=== PATIENT | female | born 1975 | race Caucasian/White ===

== ENCOUNTER 2019-12-27 09:16 | Observation (INO) | payer BC, SELFPAY ==
[2019-12-27] VITALS (8 sets, daily range): BP systolic 91–121; BP diastolic 60–94; PULSE 67–125; RESP 16–18; TEMP 36.5–36.7; O2SAT 94–99; BMI 26.8; BMI 26.3
--- NOTE | 2019-12-27 09:19 | ED.DCSUM_ITS ---
History of Present Illness Chief Complaint: Palpitations Narrative: Patient presenting with palpitations. She states he has had these multiple times since he was a child. She states that she usually can do vagal maneuvers and get her heart rate back to normal. Today she states that she was unable to do this. She states that she knows to bear down and going to the position. Patient also states that her family numbers have recently been diagnosed with Gitelman syndrome. She suspicious she may have this. She states that usually if she keeps up with her magnesium she does not have a problem. Patient states that she learned this from a friend who had similar fast heart rates. Patient states she was up feeding more than usual last night and thought she may need to replace her electrolytes. Patient states that she really saw a doctor as a kid and her mother would just teach her how to manage symptoms. She is not having any chest pain. No nausea or vomiting. States that prior to this she was feeling at her baseline. Past Medical History - Allergies and Home Meds Allergies/Adverse Reactions: Allergies Penicillins Allergy (Verified 12/27/19 09:22) Hives Prior records reviewed: Yes Lives: Spouse/ Significant Other Smoking Status: Never smoker Alcohol: None Drugs: None Review of Systems General: Denies: Chills, Fever, Sweats Eyes: Denies: Visual changes - bilaterally, Diplopia ENT: Denies: Rhinorrhea, Sore throat Cardiovascular: Reports: Palpitations, Heart racing Respiratory: Denies: Dyspnea, Cough, Dyspnea on exertion Gastrointestinal: Denies: Abdominal pain, Nausea, Vomiting, Diarrhea, Melena, Hematochezia Genitourinary: Denies: Dysuria, Hematuria, Frequency Musculoskeletal: Denies: Back pain, Extremity Pain Skin: Denies: Rash, Wounds Neurological: Denies: Headache, Weakness, Numbness Physical Exam General: Well nourished, Well developed, No Acute Distress Head: Normocephalic, Atraumatic Eyes: Perrl, EOMI ENT: Moist mucous membranes Cardiovascular: No murmurs, Tachycardia Respiratory: No distress, CTA bilaterally Abdomen: Soft Back: Normal Inspection Extremities: Nontender, No edema Skin: Normal color, No rash Neurological: Alert, Oriented x3 Psychological: Normal affect Diagnostic/Tx/Re-eval Clinical Impression(s) from Imaging Studies Chest X-Ray 12/27/19 09:29 IMPRESSION: Normal x-ray examination of the chest. Electronically Signed: Magdiel Stafford, at 10:25 EDT , Service support , Laboratory Data 12/27/19 12/27/19 09:00 09:00 WBC 7.3 RBC 4.72 Hgb 14.2 Hct 41.2 MCV 87.3 MCH 30.1 MCHC 34.5 RDW Std Deviation 38.5 RDW Coeff of Jeremy 12.0 Plt Count 245 MPV 10.5 Immature Gran % (Auto) 0.400 Neut % (Auto) 60.7 Lymph % (Auto) 26.2 [place] % (Auto) 8.3 Eos % (Auto) 3.7 Baso % (Auto) 0.7 Absolute Neuts (auto) 4.4 Absolute Lymphs (auto) 1.92 Nucleated RBC % 0 Sodium 139 Potassium 2.5 L* Chloride 105 Carbon Dioxide 25.0 Anion Gap 9 BUN 19 H Creatinine 0.72 Estim Creat Clear Calc 79.68 Est GFR (MDRD) Af Amer 114 Est GFR (MDRD) Non-Af 94 BUN/Creatinine Ratio 26.5 H Glucose 164 H Calcium 8.2 L Magnesium 1.3 L Troponin I < 0.015 TSH 2.52 - Rhythm Strip Rhythm Strip: - SVT 134 bpm Rate: 134 - SVT - EKG Initial EKG Interpretation: - - SVT 134 bpm Prior: No Prior Follow-up EKG Interpretation: Sinus Tachycardia, - - U waves present - Medical Decision Making 44-year-old female presenting with palpitations. She states this is been occurring nearly her entire life. She states that generally taking magnesium helps control the frequency of her palpitations. She also does vagal maneuvers at home when she does have palpitations like this. She states that she typically can get herself into a normal rhythm again. Patient also believes she has undiagnosed Gitelman syndrome given that her brothers similar symptoms. 1 of her brothers tested and is positive for Gitelman syndrome. Patient does not know if her parents had similar symptoms. Patient also presented in SVT. Patient's heart rate was in the 130s. She was given adenosine 6 mg followed subsequently by 12 mg which did put her back into a normal sinus rhythm. EKG performed adenosine shows a sinus tachycardia 105 bpm with Q waves. Chest x-ray is normal. Troponin is negative. CBC is within normal limits. Magnesium is low at 1.4. Potassium is also low at 2.5. Calcium is also low at 8.2. Creatinine appears normal. BUN/creatinine ratio is slightly elevated. Patient was given a liter of IV fluids. Was also given IV magnesium for milligrams as well as 40 mEq of p.o. potassium. Given patient's SVT, electrolyte abnormalities I feel she needs to be admitted to the hospital. Hospitalist did agree to accept admission. He will give her IV Assam once her magnesium is done. He will also replete her calcium as needed. Impression: 1. SVT 2. Hypokalemia 3. Hypomagnesemia ED Disposition - Plan for ED Patient: Disposition: Acute Care Hospital [facility]
--- NOTE | 2019-12-27 09:21 | EKG12_ITS ---
Test Reason : PALPITATIONS Blood Pressure : / mmHG Vent. Rate : 134 BPM Atrial Rate : 133 BPM P-R Int : 000 ms QRS Dur : 070 ms QT Int : 262 ms P-R-T Axes : 000 023 -35 degrees QTc Int : 391 ms Supraventricular tachycardia Nonspecific ST and T wave abnormality Abnormal ECG Confirmed by MIHAI HERNANDEZ ([id number]), greeting card editor SLIME SANTANA ([id number]) on 01/01/2020 4:07:38 PM Referred By: NELY Confirmed By:MIHAI HERNANDEZ
--- NOTE | 2019-12-27 09:29 | RAD_ITS ---
STUDY: X-RAY CHEST REASON FOR EXAM: Female, 44 years old. Pt. States she has had trouble with rapid heart rate all of her life but it normally settles down. Today she has had rapid heart rate without being able to get it to settle down. TECHNIQUE: Single AP portable view of the chest. COMPARISON: None. FINDINGS: EKG electrodes are seen. The lungs are clear and expanded. There is no demonstrated pleural abnormality. Normal size heart. Normal mediastinum and caridad. Normal visualized pulmonary arteries. Normal visualized aortic arch and descending thoracic aorta. Normal visualized thoracic spine. Normal visualized ribs, clavicles, and shoulders. There is no demonstrated abnormality of the visualized soft tissue structures of the upper abdomen. RAD/Chest 1 View (Portable) IMPRESSION: Normal x-ray examination of the chest. Electronically Signed: Magdiel Stafford, at 10:25 EDT , Service support ,
--- NOTE | 2019-12-27 09:29 | EKG12_ITS ---
Test Reason : POST CARDIOVERSION Blood Pressure : / mmHG Vent. Rate : 105 BPM Atrial Rate : 105 BPM P-R Int : 186 ms QRS Dur : 076 ms QT Int : 340 ms P-R-T Axes : 063 -07 043 degrees QTc Int : 449 ms Sinus tachycardia Left atrial enlargement Nonspecific ST and T wave abnormality Abnormal ECG Confirmed by MIHAI HERNANDEZ ([id number]), makeup editor JOHN RUCKER ([id number]) on 01/01/2020 2:21:02 PM Referred By: NELY/JOSE Confirmed By:MIHAI HERNANDEZ
[2019-12-27 10:00] LABS: Absolute Lymphocyte Count 1.92 X10^3/uL (0.83-4.51); Absolute Neutrophil Count 4.4 X10^3/uL (2.0-7.7); Basophil# 0.05 X10^3/uL; Basophil% 0.7 % (0-1); Eosinophil# 0.27 X10^3/uL; Eosinophils% 3.7 % (0-5); Hematocrit 41.2 % (37-47); Hemoglobin 14.2 g/dL (12.0-15.0); Lymphocyte # 1.92 X10^3/ul (4.0); Lymphocyte % 26.2 % (19-41); Mean Corp Hgb Conc 34.5 g/dL (32-36); Mean Corpuscular Hgb 30.1 pg (27.0-32.0); Mean Corpuscular Volume 87.3 fL (81-99); Mean Platelet Vol. 10.5 fl (6.2-12.0); Monocyte# 0.61 X10^3/uL; Monocyte% 8.3 % (0-10); NRBC Flagged by Analyzer 0 % (0-5); Neutrophil # 4.44 X10^3/uL (2.7-7.7); Neutrophil % 60.7 % (47-70); Platelet Count 245 K/mm3 (150-450); RBC Distribution Width SD 38.5 fl (35.1-43.9); Red Blood Count 4.72 M/mm3 (4.2-5.4); White Blood Count 7.3 K/mm3 (4.4-11.0)
[2019-12-27 10:24] LABS: Anion Gap 9 (5-15); BUN 19 mg/dL (7-18); BUN/Creat Ratio 26.5 RATIO (10-20); Calcium,Total 8.2 mg/dL (8.5-10.1); Chloride 105 mmol/L (98-107); Creatinine, Serum 0.72 mg/dL (0.55-1.02); EST Glomerular Filtration Rate 94 mL/min (>60); Est Glom Filt Rate - Afr Amer 114 mL/min (>60); Estimated Creatinine Clearance 79.68 ml/min; Glucose 164 mg/dL (74-106); Magnesium 1.3 mg/dL (1.6-2.6); Potassium 2.5 mmol/L (3.5-5.1); Sodium Level 139 mmol/L (136-145); Thyroid Stim Hormone (TSH) 2.52 uIU/mL (0.358-3.74)
--- NOTE | 2019-12-27 10:24 | NURSING ---
NO OLD EKGS
[2019-12-27] MEDS: Adenosine 6 MG/2 ML Syringe IV (10:31)
[2019-12-27] MEDS: 0.9% Normal Saline 1,000 ML 1000 ML IV (10:32)
[2019-12-27] MEDS: Adenosine 6 MG/2 ML Syringe 12 MG IV (10:32)
--- NOTE | 2019-12-27 11:24 | NURSING ---
PCU SVT, HYPOKALEMIA TERELETSKY
[2019-12-27] MEDS: Magnesium Sulfate 4gm/100mL 4 GM/100 ML IV.SOLN. IV ×2 (11:45→15:52)
--- NOTE | 2019-12-27 12:20 | ECHOD_ITS ---
Reason For Study: ARRHYTHMIA Procedure This was a 2D Doppler, Color Flow transthoracic echocardiogram. Exam performed portable in patient room. Left Ventricle Normal size and thickness. The estimated ejection fraction is 65 %. Normal diastology for age. No regional wall motion abnormalities noted. Right Ventricle Normal size and thickness. Normal systolic function. Atria Normal left atrium. Normal right atrium. Normal atrial septum. Mitral Valve The mitral valve is structurally normal. No prolapse or stenosis seen. Tricuspid Valve Normal tricuspid valve. Trivial tricuspid valve insufficiency. Right ventricular systolic pressure estimated to be 26 mmHg. Aortic Valve Trisinus/trileaflet aortic valve. Pulmonic Valve Normal pulmonic valve. Great Vessels Normal aortic root. Normal arch. Normal inferior vena cava. Inferior vena cava collapse with sniff. Pericardium/Pleural No pericardial effusion. MMode/2D Measurements & Calculations LVIDd: 4.1 cm IVSd: 0.72 cm Ao root diam: 2.8 cm LVIDs: 2.7 cm LVPWd: 0.50 cm RVDd: 2.8 cm FS: 35.2 % LAV(MOD-bp): 44.2 ml LVAd ap4: 26.4 cm2 SV(MOD-sp4): 39.5 ml LAV(MOD-bp) Indexed: 26.6 ml/m2 EDV(MOD-sp4): 69.0 ml LAV(MOD-sp2): 48.4 ml EDV(sp4-el): 70.8 ml LAV(MOD-sp4): 35.4 ml LVAs ap4: 15.6 cm2 ESV(MOD-sp4): 29.5 ml ESV(sp4-el): 29.6 ml EF(MOD-sp4): 57.3 % EF(sp4-el): 58.1 % SV(sp4-el): 41.1 ml LA A4 area: 15.6 cm2 LA dimension(2D): 3.1 cm RA A4 area: 12.8 cm2 Time Measurements MV dec time: 0.20 sec Doppler Measurements & Calculations MV E max patrick: 98.2 cm/sec Lat Peak E' Patrick: 23.8 cm/sec Med Peak E' Patrick: 15.9 cm/sec MV A max patrick: 37.8 cm/sec E/E' lat: 4.1 E/E' med: 6.2 MV E/A: 2.6 Ao V2 max: 136.9 cm/sec LV V1 max: 114.7 cm/sec PA V2 max: 97.2 cm/sec Ao max P.5 mmHg LV V1 max P.3 mmHg PI end-d patrick: 77.2 cm/sec TR max patrick: 253.1 cm/sec TR max P.6 mmHg Interpretation Summary The estimated ejection fraction is 65 %. Normal diastology for age. Trivial tricuspid valve insufficiency. Right ventricular systolic pressure estimated to be 26 mmHg. There is no comparison study available. Ordering Physician: Bryan Vo Referring Physician: STEFANI VARGAS Performed By: Maggie Corrales, STEPHANIE, RVT
--- NOTE | 2019-12-27 14:34 | HP.PCM_ITS ---
Problem List (1) SVT (supraventricular tachycardia) Status: Acute History of Present Illness Date of Admission: 12/27/19 Chief Complaint: SVT The patient is a 44 year old F who was seen in the emergency room at [facility] with a chief complaint of rapid heartbeat. Patient states that she has had episodes for several years where her heart speeds up and she does a Valsalva maneuver to make the heart rate go back to normal. Patient has not been seen by primary care physician in many years, she takes no medications at home, and she does not have a diagnosis for her episodes of palpitations. Patient states that she has 2 siblings with Gitelman's syndrome but she has not been diagnosed herself with the same syndrome. EKG performed in the emergency room showed the patient to be in SVT at a rate of 134, she was given 2 doses of adenosine and converted to a sinus tachycardia thereafter. Labs showed a normal CBC, patient's potassium was low 2.5, BUN was elevated at 19, glucose was 164, and magnesium was 1.3. Patient had a chest x- ray performed which was normal. Patient was placed in observation status on PCU, she will undergo an echocardiogram and she will be given potassium and magnesium replacement-this was started by the emergency room physician and will be continued on the floor along with additional amounts of magnesium and potassium supplementation. Labs will be rechecked this afternoon. Past Medical History Allergies peanut Allergy (Verified 12/27/19 12:22) Anaphylaxis Penicillins Allergy (Verified 12/27/19 09:22) Hives Home Medications: Ambulatory Orders Medication Instructions Recorded NK 12/27/19 Surgical History: herniorrhaphy Psychiatric History: No pertinent psych hx SHAKE MAKER History: No pertinent SHAKE MAKER history Lives: Spouse/ Significant Other Smoking Status: Never smoker Tobacco Use: Non-smoker Alcohol: None Drugs: None - *Family History Maternal History Items: No pertinent history Paternal History Items: No pertinent history Review of Systems Constitutional: Denies: Anorexia, Chills, Fever, Night Sweats, Malaise, Weakness, Weight Change, Fatigue Eyes: Denies: Cataracts, Conjunctivae Inflammation, Double vision, Drainage HEENT: Denies: Difficulty Swallowing, Dysphasia, Ear Pain, Eye Pain, Hearing Changes, Nasal bleeding, Nasal Congestion Cardiovascular: Reports: Palpitations - Patient admits to history of palpitations-exact diagnosis for these palpitations were unknown-this has been occurring for many years. Denies: Chest Pain, Claudication, Chest Pressure, Chest Tightness Respiratory: Denies: Cough, Hemoptysis, Pleuritic Pain, Shortness of Breath, Shortness of breath at rest, Shortness of breath upon exertion Gastrointestinal: Denies: Abdominal Pain, Constipation, Diarrhea, Hematemesis, Hematochezia, Nausea, Melena, Vomiting Genitourinary: Denies: Dysuria, Frequency, Hematuria, Hesitancy, Urgency Gynecological: Denies: Breast symptoms Musculoskeletal: Denies: Back Pain, Foot Pain, Hand Pain, Joint Pain, Joint stiffness, Joint swelling, Joint Tenderness, Leg Pain Skin: Denies: Dryness, Pruritis, Rash Neurological: Denies: Blurred vision, Double vision, Change in Speech, Slurred speech, Difficulty swallowing, Focal weakness, Headaches, Incoordination, Numbness, Tingling Psychiatric: Denies: Anxiety, Depression, Homicidal Ideations, Suicidal Ideations Endocrine: Denies: Change in Body Habitus, Heat/ Cold Intolerance, Polydipsia, Polyuria Hematologic/ Lymphatic: Denies: Adenopathy, Anemia, Easy Bruising, Easy Bleeding, Petechiae, Purpura VTE Information - Inpt Only VTE Present on Admission: No VTE Mechan Device Prophylaxis: None VTE Pharm Prophylaxis ordered?: No Reason prophylaxis not ordered:: Treatment Not Indicated Patient Problems: Active and Suspected Problems SVT (supraventricular tachycardia) (Acute) - Physical Exam Vitals/I&O's: Vital Signs Temp Pulse Resp BP Pulse Ox 98.0 F 72 16 91/60 98 12/27/19 12:41 12/27/19 12:41 12/27/19 12:41 12/27/19 12:41 12/27/19 12:41 Oxygen Delivery Method Room Air Weight: 65.3 kg Body Mass Index (BMI) 26.3 Intake and Output for Last 24 Hours 12/25/19 12/26/19 12/27/19 23:59 23:59 23:59 Intake Total 1400 / 1400 Output Total 500 / 500 Balance 900 / 900 General: Alert, Oriented x3, Cooperative, No apparent distress, Well developed, Well nourished HEENT: Atraumatic, PERRLA, EOMI, Normocephalic Oral: Moist Mucosa Neck: Supple, No JVD, Negative Carotid Bruits, Trachea Midline, Thyroid Normal Size and Texture Lungs: Clear to auscultation, Normal air movement, No rhonchi, No wheeze, No rales Cardiovascular: Regular rate, Regular Rhythm, Normal S1, Normal S2, No murmurs, PMI Normal, No rub noted, No Gallop Abdomen: Bowel Sounds Present, Soft, Non Tender, Non-Distended Extremities: No clubbing, No cyanosis, No edema, Capillary Refill Less than 3 Seconds Skin: No rashes, No breakdown Musculoskeletal: No Tenderness to Palpation of Joints or Extremities Neurological: Cranial nerves II-XII grossly intact, Neuro grossly intact, Sensory exam intact to light touch and pain, Coordination normal Psych/Mental Status: Normal Affect, Appropriate, Alert and oriented to time, place, person, mood and affect Laboratory Results 12/27/19 09:00: WBC 7.3, RBC 4.72, Hgb 14.2, Hct 41.2, MCV 87.3, MCH 30.1, MCHC 34.5, RDW Std Deviation 38.5, RDW Coeff of Jeremy 12.0, Plt Count 245, MPV 10.5, Immature Gran % (Auto) 0.400, Neut % (Auto) 60.7, Lymph % (Auto) 26.2, [place] % (Auto) 8.3, Eos % (Auto) 3.7, Baso % (Auto) 0.7, Absolute Neuts (auto) 4.4, Absolute Lymphs (auto) 1.92, Nucleated RBC % 0 12/27/19 09:00: Sodium 139, Potassium 2.5 L*, Chloride 105, Carbon Dioxide 25.0, Anion Gap 9, BUN 19 H, Creatinine 0.72, Estim Creat Clear Calc 79.68, Est GFR (MDRD) Af Amer 114, Est GFR (MDRD) Non-Af 94, BUN/Creatinine Ratio 26.5 H, Glucose 164 H, Calcium 8.2 L, Magnesium 1.3 L, Troponin I < 0.015, TSH 2.52 Current Medications Acetaminophen (Tylenol) 650 mg PO Q6H PRN PRN PRN Reason: Pain Score 1-10/Temp > 100.7 F Potassium Chloride/Sodium Chloride () 1,000 mls @ 100 mls/hr IV .Q10H KRISTAN Last Admin: 12/27/19 13:57 Dose: 100 mls/hr Documented by: Magnesium Sulfate () 4 gm in 100 mls @ 25 mls/hr IV X1 ONE Stop: 12/27/19 19:44 Magnesium Oxide (Mag-Ox 400) 400 mg PO BIDCM KRISTAN Sodium Chloride () 10 - 40 ml IV UD PRN PRN Reason: SALINE FLUSH Assessment/Plan All Active Problems SVT (supraventricular tachycardia) (Acute) #1 supraventricular tachycardia-secondary to electrolyte abnormalities, patient will be placed in observation status on PCU and monitored on telemetry, she will have an echocardiogram obtained, if this echocardiogram is significantly abnormal, she will need to see a district scout executive #2 hypokalemia-probably secondary to undiagnosed Gitelman's syndrome, potassium will be replaced and rechecked #3 hypomagnesemia-probably secondary to undiagnosed Gitelman's syndrome #4 elevated glucose-hemoglobin A1c will be drawn, patient has no history of type 2 diabetes. OBSV E&M: 16377 Initial observation care L3
[2019-12-27] MEDS: Magnesium Oxide 400 MG Tablet PO (17:33)
[2019-12-27 18:11] LABS: Anion Gap 6 (5-15); BUN 16 mg/dL (7-18); Calcium,Total 7.7 mg/dL (8.5-10.1); Chloride 107 mmol/L (98-107); Creatinine, Serum 0.64 mg/dL (0.55-1.02); EST Glomerular Filtration Rate 107 mL/min (>60); Est Glom Filt Rate - Afr Amer 130 mL/min (>60); Estimated Creatinine Clearance 89.64 ml/min; Glucose 92 mg/dL (74-106); Magnesium 3.4 mg/dL (1.6-2.6); Potassium 3.4 mmol/L (3.5-5.1); Sodium Level 141 mmol/L (136-145)
[2019-12-27 18:12] LABS: Hemoglobin A1c 5.3 % (3.8-5.6)
[2019-12-28 02:59] VITALS: PULSE 62
[2019-12-28 04:10] VITALS: BP 99/55; PULSE 67; RESP 16; TEMP 36.7; O2SAT 96
[2019-12-28 06:32] LABS: Anion Gap 5 (5-15); BUN 11 mg/dL (7-18); BUN/Creat Ratio 22.1 RATIO (10-20); Calcium,Total 7.2 mg/dL (8.5-10.1); Chloride 107 mmol/L (98-107); EST Glomerular Filtration Rate 144 mL/min (>60); Est Glom Filt Rate - Afr Amer 174 mL/min (>60); Estimated Creatinine Clearance 114.74 ml/min; Glucose 87 mg/dL (74-106); Magnesium 2.2 mg/dL (1.6-2.6); Potassium 3.5 mmol/L (3.5-5.1); Sodium Level 140 mmol/L (136-145)
[2019-12-28 07:06] VITALS: PULSE 62
[2019-12-28 10:10] VITALS: BP 96/63; PULSE 96; RESP 16; TEMP 36.7; O2SAT 98
--- NOTE | 2019-12-28 10:50 | PCM.DC ---
- Discharge Diagnoses Current Active Problems: Current Active and Chronic Problems SVT (supraventricular tachycardia) (Acute) You will use the following diet at home:: No restrictions Your food should be the consistency of: Regular Your liquids should be the consistency of: Regular/Thin Discharge Activity: Return to Normal Activity Weight Bearing Status: Full weight bearing Allergies/Adverse Reactions: Allergies peanut Allergy (Verified 12/27/19 12:22) Anaphylaxis Penicillins Allergy (Verified 12/27/19 09:22) Hives Medications to take at Discharge Magnesium Oxide [Mag-Ox 400] 800 mg PO BID #120 tab 12/28/19 Potassium Chloride 40 meq PO BID #240 capsule.er 12/28/19 The following prescriptions were given: Magnesium Oxide [Mag-Ox 400] 800 mg PO BID #120 tab Transmission Status: Pending to [id number] Potassium Chloride 40 meq PO BID #240 capsule.er Transmission Status: Pending to [id number] Primary Care Physician: [facility] [address] Doctor,Out of [NON-STAFF] - Please follow up with your Primary Care Physician in: NEXT WEEK Test Results: Test results from this visit will be discussed in further detail at your follow-up appointment, if applicable.
[2019-12-28 11:17] VITALS: PULSE 72
[2019-12-28 13:10] VITALS: BP 99/68; PULSE 77; RESP 16; TEMP 36.4; O2SAT 94
--- NOTE | 2019-12-28 15:35 | PCM.DC.SUM ---
Discharge Date and Diagnosis Date of Admission: 12/27/19 Date of Discharge: 12/28/19 - Primary Discharge Diagnosis Acute Problems: #1 supraventricular tachycardia-secondary to electrolyte abnormalities #2 hypokalemia- secondary to undiagnosed Gitelman's syndrome #3 hypomagnesemia- secondary to undiagnosed Gitelman's syndrome #4 Gitelman's syndrome Hospital Course and Treatment Operations: None Procedures: 2-D Echocardiogram Summary of Care Provided: The patient is a 44 year old F who was seen in the emergency room at [facility] with chief complaint of increased heart rate, she was found to be in SVT at a rate of approximately 137 bpm, she was given adenosine x2 with conversion to normal sinus rhythm. Lab work obtained in the emergency room showed the patient to have a low potassium and low magnesium, the most likely reason for this was undiagnosed Gitelman's syndrome. She has 2 siblings that have the same syndrome. Patient was placed in observation status on PCU, she was given magnesium and potassium replacement, labs were monitored, and she was monitored on telemetry. Patient also underwent an echocardiogram which was unremarkable. Patient had no more episodes of SVT during her hospitalization. On 12/28/2019, patient was seen and examined: On examination she appeared in good health and spirits, she does not appear to be in any distress. Vital signs as documented. Skin warm and dry and without overt rashes. Neck without JVD, thyroid appears normal, trachea is midline, neck is supple. Lungs clear, normal air movement was noted. Heart exam notable for regular rhythm, normal sounds and absence of murmurs, rubs or gallops. Abdomen unremarkable and without evidence of organomegaly, masses, or abdominal aortic enlargement, bowel sounds are present in all 4 quadrants, no abdominal tenderness was noted. Extremities nonedematous, no cyanosis was noted, no clubbing was noted. Neuro: Cranial nerves II through XII are grossly intact, no focal motor deficits were noted, sensation to light touch and pinprick is intact, motor exam 5/5 throughout. Psych: Patient is alert and oriented x3, she does not appear anxious or depressed, she does not appear agitated. Patient appeared stable for discharge on 12/28/2019. - Physical Exam Vitals/I&O's: Vital Signs Temp Pulse Resp BP Pulse Ox 97.6 F L 77 16 99/68 94 12/28/19 13:10 08/13/20 13:10 12/28/19 13:10 12/28/19 13:10 12/28/19 13:10 Oxygen Delivery Method Room Air Weight: 65.3 kg Body Mass Index (BMI) 26.3 Intake and Output for Last 24 Hours 12/26/19 12/27/19 12/28/19 23:59 23:59 23:59 Intake Total 3367. / 3367.08 2267 / 2267 Output Total 1400 / 1400 Balance 1967. / 1966.08 226 / 2268 Laboratory Results 12/27/19 16:50: Sodium 141, Potassium 3.4 L, Chloride 107, Carbon Dioxide 28.0, Anion Gap 6, BUN 16, Creatinine 0.64, Estim Creat Clear Calc 89.64, Est GFR (MDRD) Af Amer 130, Est GFR (MDRD) Non-Af 107, BUN/Creatinine Ratio 25.0 H, Glucose 92, Calcium 7.7 L, Magnesium 3.4 H 12/27/19 16:50: Hemoglobin A1c 5.3 12/28/19 05:52: Sodium 140, Potassium 3.5, Chloride 107, Carbon Dioxide 28.0, Anion Gap 5, BUN 11, Creatinine 0.50 L, Estim Creat Clear Calc 114.74, Est GFR (MDRD) Af Amer 174, Est GFR (MDRD) Non-Af 144, BUN/Creatinine Ratio 22.1 H, Glucose 87, Calcium 7.2 L, Magnesium 2.2 Discharge Activity: Return to Normal Activity Weight Bearing Status: Full weight bearing Home Medications: Medications to take at Discharge Magnesium Oxide [Mag-Ox 400] 800 mg PO BID #120 tab 12/28/19 Potassium Chloride 40 meq PO BID #240 capsule.er 12/28/19 Following Prescriptions Were Given to Patient: Magnesium Oxide [Mag-Ox 400] 800 mg PO BID #120 tab Transmission Status: Received by [id number] Potassium Chloride 40 meq PO BID #240 capsule.er Transmission Status: Received by [facility] #[id number] Primary Care Physician: Sravan Doctor,Out of [NON-STAFF] - Please follow up with your Primary Care Physician in: NEXT WEEK Disposition: Home Minutes spent on discharge:: 30 Patient Condition:: Stable Medical Necessity - Tobacco Use Smoking Status: Never smoker Tobacco Use: Non-smoker Meaningful Use Info Meaningful Use Diagnoses (Choose all that apply): None applicable OBSV E&M: 25688 Observation care discharge
== END 2019-12-28 10:51 | disposition home or self-care (01) ==
LOC: ED 10:52 → PCU 11:37
PROVIDERS: Admitting Provider Internal Medicine; Emergency Provider Student in an Organized Health Care Education/Training Program; PCP Nurse Practitioner Primary Care; Visit Provider Internal Medicine
DX: E87.6 Hypokalemia (principal); E83.42 Hypomagnesemia; I47.1 Supraventricular tachycardia; R73.9 Hyperglycemia, unspecified
CPT/HCPCS: 36415; 71045; 80048; 83036; 83735; 84443; 84484; 85025; 93005; 93306; 96361; 96374; 99218; 99285; J7030; A4216; G0378; J0153